=== PATIENT | female | born 1940 | race Caucasian/White ===

== ENCOUNTER 2021-09-06 09:12 | Emergency (ER) | payer MEDICARE, BC, SELFPAY ==
[2021-09-06 09:12] VITALS: BP 149/62; PULSE 63; RESP 20; TEMP 36.5; O2SAT 96
--- NOTE | 2021-09-06 09:20 | ED.URI ---
HPI - URI/Sore Throat General Chief Complaint: Upper Respiratory Infection Stated Complaint: Sinus Pain/Cough Time Seen by Provider: 09/06/21 09:20 Source: patient, family, RN notes reviewed and old records reviewed Mode of arrival: ambulatory Limitations: no limitations History of Present Illness HPI Narrative: 81-year-old female who presents to [facility] with one week duration of sinus congestion with drainage, cough with some shortness of breath with activity. Patient verbalizes history of previous sinus infections she denies any fever but reports some chills, denies any ear pain or sore throat. Patient has not had Covid vaccinations. MD elicited complaint: cough, rhinorrhea and nasal congestion Pertinent past history: sinusitis Onset (ago): week(s) (1) Description of mucous: clear Treatments prior to arrival: none Related Data Home Medications Medication Instructions Recorded Confirmed atorvastatin 20 mg PO DAILY 09/06/21 09/06/21 famotidine 20 mg PO BID 09/06/21 09/06/21 metoprolol tartrate 200 mg PO DAILY 09/06/21 09/06/21 pioglitazone 30 mg PO DAILY 09/06/21 09/06/21 triamterene-hydrochlorothiazid 1 tablet PO QAM 09/06/21 09/06/21 Allergies Allergy/AdvReac Type Severity Reaction Status Date / Time No Known Allergies Allergy Verified 09/06/21 09:22 Review of Systems Review of Systems: CONSTITUTIONAL: Denies fever,positive for chills, no sweats. EYES: Denies visual changes, redness, or discharge. ENT: Positive rhinorrhea, congestion, no sore throat, or otalgia. CARDIOVASCULAR: Denies chest pain, palpitations, or edema. RESPIRATORY: Positive cough or dyspnea with exertion. GASTROINTESTINAL: Denies abdominal pain, nausea, vomiting, or diarrhea. GENITOURINARY: Denies dysuria or hematuria. SKIN: Denies rash or itching. MUSCULOSKELETAL: Denies back pain, joint pain, or myalgia. NEUROLOGIC: Denies headache, numbness, or weakness. PSYCHIATRIC: Denies anxiety or depression. All systems reviewed & are unremarkable except as noted in HPI and below PMFSH Past Medical History Medical History (Updated 09/06/21 @ 09:49 by Lisa Schmid NP) Breast cancer Diabetes Elevated cholesterol GERD (gastroesophageal reflux disease) Hypertension Lymphoma Sinusitis Surgical History Surgical History (Updated 09/06/21 @ 09:40 by Lisa Schmid NP) H/O: hysterectomy History of right mastectomy With chemo Hx of cholecystectomy Family History Family History (Updated 09/06/21 @ 15:47 by Lisa Schmid NP) Other Cerebrovascular accident Hypertension Lung cancer Social History Social History (Updated 09/06/21 @ 09:41 by Lisa Schmid NP) Smoking status: Never smoker Alcohol intake: never Substance use: never Living arrangements: with family Gender identity (if verbalized by the patient): Female Comments At time of signature, agree with nursing past medical, surgical, social and family history. There is no relevant family history pertinent to the presenting complaint Exam Narrative: GENERAL: Well-appearing, well-nourished, and in no acute distress. HEAD: Normocephalic, atraumatic. EYES: PERRLA and EOMI. ENT: Nares red swollen clear rhinorrhea no epistaxis. Mucous membranes moist. TMs normal with dull light reflex, throat red no exudate or lesions no tonsillar enlargement postnasal drainage noted NECK: Supple. No lymphadenopathy CHEST: Clear to auscultation. No respiratory distress. SaO2 96% on room air, cough HEART: Regular rate and rhythm. No murmur heard. Normal peripheral pulses. ABDOMEN: Soft, nontender, nondistended, normal active bowel sounds. EXTREMITIES: Normal range of motion. No edema. SKIN: Warm, dry, no rash. NEURO: No focal deficits. Alert and oriented x3. Course Vital Signs Vital signs: Vital Signs Temperature 36.5 C 09/06/21 09:12 Pulse Rate 63 09/06/21 09:12 Respiratory Rate 20 09/06/21 09:12 Blood Pressure 149/62 H 09/06/21 09:12 Pulse Oxime
== END 2021-09-06 09:58 | disposition home or self-care (01) ==
PROVIDERS: Emergency Provider Registered Nurse; PCP Internal Medicine
DX: J32.9 Chronic sinusitis, unspecified (principal); E11.9 Type 2 diabetes mellitus without complications; E78.00 Pure hypercholesterolemia, unspecified; K21.9 Gastro-esophageal reflux disease without esophagitis; I10 Essential (primary) hypertension; Z85.3 Personal history of malignant neoplasm of breast; Z90.11 Acquired absence of right breast and nipple; Z85.72 Personal history of non-Hodgkin lymphomas; Z92.21 Personal history of antineoplastic chemotherapy; Z20.822 Contact with and (suspected) exposure to COVID-19
CPT/HCPCS: 87426; 87804; 99213; C9803; G0463

== ENCOUNTER 2022-06-19 12:01 | Outpatient (CLI) | payer MEDICARE, BC, SELFPAY ==
--- NOTE | ~2022-06-19 | NM_ITS ---
EXAMINATION: NM pulmonary perfusion DATE: 06/19/2022 13:05 INDICATION: Dyspnea TECHNIQUE: 5.5 mCi Tc-99m MAA by intravenous route. Scintigraphic images of the chest were obtained. COMPARISON: Chest radiograph dated 06/19/2022 FINDINGS: There is relatively homogeneous perfusion throughout the lungs. No discrete perfusion defects identi fied. IMPRESSION: 1. Normal study. Low probability for pulmonary embolism. Reviewed, dictated and finalized at location A.
--- NOTE | ~2022-06-19 | XR_ITS ---
XR chest 2V 06/19/2022 13:08 Indication: Dyspnea. Procedure: 2 views chest Comparison: No prior studies for comparison. Findings: Cardiomegaly. There is atherosclerosis of the aorta. No focal air space disease, pulmonary edema, pleural effusion or suspected pneumothorax. Impression: 1: No acute cardiopulmonary disease. Reviewed, dictated and finalized at location A. Impression: 1: No acute cardiopulmonary disease.
[2022-06-23 13:33] LABS: ANA Cascade Screen Negative (Negative)
== END 2022-06-19 12:02 | disposition home or self-care (01) ==
PROVIDERS: PCP Physician Assistant; Referring Provider Internal Medicine Critical Care Medicine; Visit Provider Nurse Practitioner Family
DX: R06.09 Other forms of dyspnea (principal); J98.4 Other disorders of lung; R94.2 Abnormal results of pulmonary function studies; R06.02 Shortness of breath; I51.7 Cardiomegaly; I70.0 Atherosclerosis of aorta
CPT/HCPCS: 36415; 71046; 78580; 86038; A9540

== ENCOUNTER 2022-07-04 08:17 | Outpatient (CLI) | payer MEDICARE, BC, SELFPAY ==
--- NOTE | ~2022-07-04 | CT_ITS ---
EXAMINATION: CT chest high resolution wo co DATE: 07/04/2022 08:35 INDICATION: Shortness of breath TECHNIQUE: Computed tomography (CT) of the chest was performed without intravenous contrast. The dose -length product (DLP) was 169.60 mGy-cm. Automated exposure control and iterative reconstruction tech nique were employed. COMPARISON: None FINDINGS: There are subpleural reticular and groundglass opacities throughout the lungs. No pleural e ffusion or pneumothorax. No focal airspace opacities are identified. Scattered small nodules of the l ungs measure 2 to 3 mm. No pathologically enlarged thoracic lymph nodes are identified. The heart siz e is normal. Changes of right mastectomy are noted. The gallbladder is surgically absent. There is mo derate thoracic spondylosis. IMPRESSION: 1. Chronic interstitial lung disease in a pattern of nonspecific interstitial pneumonia (NSIP). Reviewed, dictated and finalized at location B. IMPRESSION: 1. Chronic interstitial lung disease in a pattern of nonspecific interstitial p neumonia (NSIP).
== END 2022-07-04 08:18 | disposition home or self-care (01) ==
PROVIDERS: PCP Physician Assistant; Visit Provider Nurse Practitioner Family
DX: R06.09 Other forms of dyspnea (principal); J84.9 Interstitial pulmonary disease, unspecified
CPT/HCPCS: 71250

== ENCOUNTER 2022-07-21 10:33 | Outpatient (CLI) | payer MEDICARE, BC, SELFPAY ==
[2022-07-21 11:13] LABS: Rheumatoid Factor < 8.6 IU/ML (<12)
[2022-07-25 11:53] LABS: Anti Cyclic Citrullinated Pept <16 Units (<20)
[2022-07-25 19:12] LABS: ANCA Screen Negative (Negative)
== END 2022-07-21 10:34 | disposition home or self-care (01) ==
PROVIDERS: PCP Physician Assistant; Visit Provider Internal Medicine Pulmonary Disease
DX: J84.9 Interstitial pulmonary disease, unspecified (principal)
CPT/HCPCS: 36415; 86036; 86200; 86430

== ENCOUNTER 2022-07-30 08:00 | Outpatient (CLI) | payer MEDICARE, BC, SELFPAY ==
[2022-07-30 08:10] VITALS: PULSE 58; O2SAT 96
[2022-07-30 08:15] VITALS: PULSE 60; O2SAT 85
[2022-07-30 08:20] VITALS: PULSE 62; O2SAT 88
[2022-07-30 08:25] VITALS: PULSE 69; O2SAT 91
[2022-07-30 08:39] VITALS: PULSE 66; O2SAT 95
--- NOTE | 2022-07-30 08:41 | HOMEO2EVAL ---
Evaluation was performed at [facility] Home Oxygen Evaluation RC: Home Oxygen (O2) Evaluation Start: 07/30/22 08:37 Freq: Status: Active Protocol: RPE Activity Type Activity Date Activity User E-sign Co-sign Detail Recorded Client Recorded Date Recorded By Document 07/30/22 08:10 [email or web address] [email or web address] 07/30/22 08:41 DJO Document 07/30/22 08:15 [email or web address] [email or web address] 07/30/22 08:41 DJO Document 07/30/22 08:20 [email or web address] [email or web address] 07/30/22 08:41 DJO Document 07/30/22 08:25 [email or web address] [email or web address] 07/30/22 08:41 DJO Document 07/30/22 08:39 [email or web address] [email or web address] 07/30/22 08:41 DJO 07/30/22 07/30/22 07/30/22 08:10 08:15 08:20 Home O2 Evaluation [Oxygen] -Test Phase Resting Exercise Exercise -Oxygen Delivery Room Air Room Air Nasal Cannula -Oxygen Flow Rate (L/min) 1 [Pulse Oximetry] -Pulse Oximetry (90-100 %) 96 85 L 88 L [Pulse Rate] -Pulse Rate (60-100 beats/min) 58 L 60 62 [Evaluation] -Activity Tolerance [Exercise] -Ambulation Distance (feet) -Ambulation Distance (meters) [Charges] -Treatment Charges O2 Evaluation - Outpatient 07/30/22 07/30/22 08:25 08:39 Home O2 Evaluation [Oxygen] -Test Phase Exercise Resting -Oxygen Delivery Nasal Cannula Room Air -Oxygen Flow Rate (L/min) 2 [Pulse Oximetry] -Pulse Oximetry (90-100 %) 91 95 [Pulse Rate] -Pulse Rate (60-100 beats/min) 69 66 [Evaluation] -Activity Tolerance Fair [Exercise] -Ambulation Distance (feet) 600 -Ambulation Distance (meters) 182.87 [Charges] -Treatment Charges
--- NOTE | 2022-07-30 08:45 | HOMEO2EVAL ---
Evaluation was performed at [facility] Home Oxygen Evaluation RC: Home Oxygen (O2) Evaluation Start: 07/30/22 08:37 Freq: Status: Active Protocol: RPE Activity Type Activity Date Activity User E-sign Co-sign Detail Recorded Client Recorded Date Recorded By Document 07/30/22 08:10 [email or web address] [email or web address] 07/30/22 08:41 DJO Document 07/30/22 08:15 [email or web address] [email or web address] 07/30/22 08:41 DJO Document 07/30/22 08:20 [email or web address] [email or web address] 07/30/22 08:41 DJO Document 07/30/22 08:25 [email or web address] [email or web address] 07/30/22 08:41 DJO Document 07/30/22 08:39 [email or web address] [email or web address] 07/30/22 08:41 DJO 07/30/22 07/30/22 07/30/22 08:10 08:15 08:20 Home O2 Evaluation [Oxygen] -Test Phase Resting Exercise Exercise -Oxygen Delivery Room Air Room Air Nasal Cannula -Oxygen Flow Rate (L/min) 1 [Pulse Oximetry] -Pulse Oximetry (90-100 %) 96 85 L 88 L [Pulse Rate] -Pulse Rate (60-100 beats/min) 58 L 60 62 [Evaluation] -Activity Tolerance Fair [Exercise] -Ambulation Distance (feet) 600 -Ambulation Distance (meters) 182.87 [Charges] -Treatment Charges O2 Evaluation - Outpatient 07/30/22 07/30/22 08:25 08:39 Home O2 Evaluation [Oxygen] -Test Phase Exercise Resting -Oxygen Delivery Nasal Cannula Room Air -Oxygen Flow Rate (L/min) 2 [Pulse Oximetry] -Pulse Oximetry (90-100 %) 91 95 [Pulse Rate] -Pulse Rate (60-100 beats/min) 69 66 [Evaluation] -Activity Tolerance Fair [Exercise] -Ambulation Distance (feet) 600 -Ambulation Distance (meters) 182.87 [Charges] -Treatment Charges
== END 2022-07-30 08:01 | disposition home or self-care (01) ==
LOC: ANHPFT 08:02
PROVIDERS: PCP Physician Assistant; Visit Provider Internal Medicine Pulmonary Disease
DX: R06.09 Other forms of dyspnea (principal)
CPT/HCPCS: 94618

== ENCOUNTER 2023-01-02 13:00 | Emergency (ER) | payer MEDICARE, BC, SELFPAY ==
[2023-01-02] VITALS (31 sets, daily range): BP systolic 126–147; BP diastolic 53–76; PULSE 61–71; RESP 11–25; TEMP 36.4; O2SAT 92–100
--- NOTE | ~2023-01-02 | XR_ITS ---
EXAMINATION: XR chest 2V 01/02/2023 13:24 INDICATION: Chest pain. History of right mastectomy. Diabetes. Hypertension. PROCEDURE: 2 view chest COMPARISON: 06/19/2022 FINDINGS: The lungs are clear. The cardiomediastinal silhouette is within normal limits. There are no pleural effusions. There is no pneumothorax suspected. The lungs are hyperinflated which is cons istent with, but not diagnostic of chronic obstructive pulmonary disease. There is atherosclerosis. IMPRESSION: 1: NO ACUTE CARDIOPULMONARY DISEASE. Reviewed, dictated and finalized at location A.
--- NOTE | 2023-01-02 13:07 | ECG_ITS ---
Measurements Intervals [place] Rate: 59 P: 58 AL: 143 QRS: 34 QRSD: 91 T: 55 QT: 407 QTc: 404 Interpretive Statements SINUS BRADYCARDIA OTHERWISE NORMAL ECG NO PREVIOUS ECG AVAILABLE FOR COMPARISON Electronically Signed On 01-02-2023 15:40:25 CDT by Beka Merida M.D.
[2023-01-02 13:36] LABS: Basophils Absolute Auto 0.1 K/mm3 (0.0-0.1); Basophils Percent Auto 0.7 % (0.2-1.2); Eosinophils Absolute Auto 0.2 K/mm3 (0-0.3); Eosinophils Percent Auto 3.1 % (0-4.4); Hematocrit 39.7 % (37.0-47.0); Hemoglobin 12.6 g/dL (12.0-15.0); Immature Granulocyte Absolute 0.04 K/mm3 (0.00-0.031); Immature Granulocyte Percent A 0.6 % (0-0.5); Lymphocytes Absolute Auto 2.19 K/mm3 (0.9-3.2); Lymphocytes Percent Auto 30.7 % (18.3-44.2); Mean Corpuscular HGB Conc 31.7 g/dl (32-36); Mean Corpuscular Hemoglobin 30.8 pg (26-34); Mean Corpuscular Volume 97.1 fl (80-100); Mean Platelet Volume 10.3 fl (7.4-10.4); Monocytes Absolute Auto 0.5 K/mm3 (0.1-0.6); Monocytes Percent Auto 7.6 % (2.6-8.5); Neutrophils Absolute Auto 4.1 K/mm3 (1.3-6.7); Neutrophils Percent Auto 57.3 % (45.5-73.1); Platelet Count Result 207 k/mm3 (150-375); Red Blood Count 4.09 M/mm3 (4.2-5.4); Red Cell Distribution Width 14.9 % (11.5-14.5); White Blood Count 7.1 K/mm3 (4.5-10.0)
[2023-01-02 13:48] LABS: Alanine Aminotransferase 20 U/L (6-35); Albumin Level 4.2 g/dL (3.5-5.1); Alkaline Phosphatase 111 U/L (38-126); Anion Gap 7 mmol/L (8-16); Aspartate Amino Transferase 25 U/L (14-36); Bilirubin,Total 0.7 mg/dL (0.2-1.3); Blood Urea Nitrogen 27 mg/dL (7-17); Calcium 9.9 mg/dL (8.4-10.2); Carbon Dioxide 33 mmol/L (22-30); Chloride 101 mmol/L (98-107); Estimated CRCL calculation 29 ml/min; Estimated Glomerular Filt Rate 39; Glucose 164 mg/dL (65-110); INR 1.1; Lipase 124 U/L (23-300); Partial Thromboplastin Time 28.6 SECONDS (22.3-36.8); Potassium 3.8 mmol/L (3.4-5.0); Prothrombin Time 13.6 Seconds (11.1-14.7); Sodium 141 mmol/L (137-145)
[2023-01-02 13:59] LABS: Troponin I < 0.012 ng/mL (0.000-0.034)
--- NOTE | 2023-01-02 14:26 | ED.CHESTPAIN ---
HPI - Chest Pain General Chief Complaint: Chest Pain Stated Complaint: cp Time Seen by Provider: 01/02/23 13:22 History of Present Illness HPI narrative: Patient presenting with left-sided chest pain, started around 6 PM last night while she was at rest, by this morning has much improved, she does state she still had 1 twinge earlier. No shortness of breath, nausea or vomiting. Initially had some radiation to under her left arm. Related Data Home Medications Medication Instructions Recorded Confirmed famotidine 20 mg tablet 20 mg PO BID 09/06/21 06/16/22 aspirin 81 mg tablet,delayed 81 mg PO DAILY 06/16/22 06/16/22 release atorvastatin 10 mg tablet 10 mg PO DAILY 06/16/22 06/16/22 calcium citrate 315 mg-vitamin D3 1 tablet PO DAILY 06/16/22 06/16/22 5 mcg (200 unit) tablet (Calcium Citrate + D) metoprolol succinate 200 mg 200 mg PO DAILY 06/16/22 06/16/22 tablet,extended release 24 hr pioglitazone 15 mg tablet 15 mg PO DAILY 06/16/22 06/16/22 vit C,W-Yn-vyzrmo-lutein-zeaxan 60 1 cap PO DAILY 06/16/22 06/16/22 mg-13.5 mg-15 mg-2 mg-6 mg capsule Allergies Allergy/AdvReac Type Severity Reaction Status Date / Time No Known Allergies Allergy Verified 08/20/22 10:55 Review of Systems Review of Systems: CONST: No fever. HEENT: No sore throat C/V: chest pain RESP: No cough GI: No nausea or vomiting : No dysuria. M/S: No joint pain. SKIN: No rash. NEURO: [No headache or focal numbness or weakness] PSYCH: [No depression] [facility] Past Medical History Medical History Breast cancer Diabetes Elevated cholesterol GERD (gastroesophageal reflux disease) Hypertension Lymphoma Sinusitis Surgical History Surgical History H/O: hysterectomy History of right mastectomy With chemo Hx of cholecystectomy Family History Family History Father Lung cancer Mother Hypertension Other Cerebrovascular accident Social History Social History Smoking status: Never smoker Alcohol intake: never Substance use: never Living arrangements: with family Gender identity (if verbalized by the patient): Female Exam Narrative: EXAMINATION OF ORGAN SYSTEMS/BODY AREAS: Constitutional: Vital signs per nursing GENERAL:[No acute distress, non-toxic appearing.] HEAD: Normal with no signs of head trauma. EYES: EOMI, conjunctiva normal ENT: Hearing grossly intact LUNGS: Nonlabored breathing. HEART: [Regular rate and rhythm], no chest wall tenderness ABD: [Soft], [nontender to palpation] EXT: Normal range of motion SKIN: [No rashes or lesions.] NEURO: [Alert and oriented x 3. No gross focal sensory or strength deficits.] PSYCH: Normal affect Course Vital Signs Vital signs: Vital Signs Temperature 97.5 F L 01/02/23 13:04 Pulse Rate 61 01/02/23 13:04 Respiratory Rate 16 01/02/23 13:04 Blood Pressure 147/63 H 01/02/23 13:04 Pulse Oximetry 98 01/02/23 13:04 Oxygen Delivery Nasal Cannula 01/02/23 13:04 Oxygen Flow Rate 2 01/02/23 13:04 Temperature 97.5 F L 01/02/23 13:04 Pulse Rate 71 01/02/23 15:35 Respiratory Rate 18 01/02/23 15:35 Blood Pressure 134/54 L 01/02/23 15:16 Pulse Oximetry 100 01/02/23 15:35 Oxygen Delivery Nasal Cannula 01/02/23 13:39 Oxygen Flow Rate 2 01/02/23 13:39 MDM - Chest Pain MDM Narrative Medical decision making narrative: ED COURSE AND MEDICAL DECISION MAKINyoF presenting with chest pain. EKG done in triage negative for acute ischemic changes. Cardiac workup is initiated. EKG: Performed in triage and interpreted by me. Normal sinus rhythm. Rate 59. Normal axis. IA normal. QRS duration normal. QTc normal. No pathologic Q waves. No ST segment elevation or depression to suggest acute ischemia. No RV strain pattern. HEA
[2023-01-02 17:12] LABS: Troponin I 0.012 ng/mL (0.000-0.034)
== END 2023-01-02 18:13 | disposition home or self-care (01) ==
PROVIDERS: Emergency Provider Emergency Medicine; PCP Physician Assistant
DX: R07.9 Chest pain, unspecified (principal); E11.9 Type 2 diabetes mellitus without complications; E78.00 Pure hypercholesterolemia, unspecified; I10 Essential (primary) hypertension; Z85.3 Personal history of malignant neoplasm of breast; Z85.72 Personal history of non-Hodgkin lymphomas; Z90.710 Acquired absence of both cervix and uterus; Z90.11 Acquired absence of right breast and nipple; Z92.21 Personal history of antineoplastic chemotherapy; Z79.82 Long term (current) use of aspirin; R00.1 Bradycardia, unspecified
CPT/HCPCS: 36415; 71046; 80053; 83690; 84484; 85025; 85610; 85730; 93005; 99284

== ENCOUNTER 2023-01-03 12:34 | Emergency (ER) | payer MEDICARE, BC, SELFPAY ==
[2023-01-03] VITALS (10 sets, daily range): BP systolic 126–154; BP diastolic 56–100; PULSE 55–62; RESP 14–22; TEMP 36.4; O2SAT 86–100
--- NOTE | ~2023-01-03 | XR_ITS ---
EXAMINATION: XR chest 2V DATE: 01/03/2023 13:13 INDICATION: Persistent chest pain TECHNIQUE: PA and lateral views of the chest are obtained. COMPARISON: 01/02/2023 FINDINGS: The lungs are free of acute opacities. No pleural effusion or pneumothorax. The cardiomedia stinal silhouette is normal. There is moderate thoracic spondylosis. Surgical clips in the right uppe r quadrant are likely from prior cholecystectomy. There are changes of right mastectomy. IMPRESSION: 1. No acute cardiopulmonary abnormality. Reviewed, dictated and finalized at location A.
--- NOTE | 2023-01-03 12:39 | ECG_ITS ---
Measurements Intervals [place] Rate: 60 P: 53 MN: 144 QRS: 40 QRSD: 80 T: 75 QT: 416 QTc: 417 Interpretive Statements BASELINE ARTIFACT SINUS RHYTHM WITHIN NORMAL LIMITS COMPARED TO ECG 01/02/2023 13:11:27 NO OBVIOUS CHANGE Electronically Signed On 01-04-2023 7:40:50 CDT by Beka Merida M.D.
[2023-01-03 13:03] LABS: Basophils Percent Auto 0.7 % (0.2-1.2); Eosinophils Absolute Auto 0.2 K/mm3 (0-0.3); Eosinophils Percent Auto 3.5 % (0-4.4); Hemoglobin 12.4 g/dL (12.0-15.0); Immature Granulocyte Absolute 0.03 K/mm3 (0.00-0.031); Immature Granulocyte Percent A 0.5 % (0-0.5); Lymphocytes Absolute Auto 1.59 K/mm3 (0.9-3.2); Lymphocytes Percent Auto 27.7 % (18.3-44.2); Mean Corpuscular HGB Conc 31.8 g/dl (32-36); Mean Corpuscular Hemoglobin 30.5 pg (26-34); Mean Corpuscular Volume 95.8 fl (80-100); Mean Platelet Volume 10.1 fl (7.4-10.4); Monocytes Absolute Auto 0.4 K/mm3 (0.1-0.6); Monocytes Percent Auto 7.1 % (2.6-8.5); Neutrophils Absolute Auto 3.5 K/mm3 (1.3-6.7); Neutrophils Percent Auto 60.5 % (45.5-73.1); Platelet Count Result 198 k/mm3 (150-375); Red Blood Count 4.07 M/mm3 (4.2-5.4); Red Cell Distribution Width 14.8 % (11.5-14.5); White Blood Count 5.7 K/mm3 (4.5-10.0)
[2023-01-03 13:16] LABS: INR 1.1; Partial Thromboplastin Time 28.7 SECONDS (22.3-36.8); Prothrombin Time 13.4 Seconds (11.1-14.7)
[2023-01-03 13:18] LABS: Alanine Aminotransferase 19 U/L (6-35); Albumin Level 3.9 g/dL (3.5-5.1); Alkaline Phosphatase 124 U/L (38-126); Anion Gap 5 mmol/L (8-16); Aspartate Amino Transferase 20 U/L (14-36); Bilirubin,Total 0.7 mg/dL (0.2-1.3); Blood Urea Nitrogen 30 mg/dL (7-17); Calcium 9.2 mg/dL (8.4-10.2); Carbon Dioxide 31 mmol/L (22-30); Chloride 103 mmol/L (98-107); Estimated CRCL calculation 31 ml/min; Estimated Glomerular Filt Rate 43; Glucose 146 mg/dL (65-110); Lipase 151 U/L (23-300); Potassium 3.9 mmol/L (3.4-5.0); Sodium 139 mmol/L (137-145)
[2023-01-03 13:29] LABS: Troponin I < 0.012 ng/mL (0.000-0.034)
--- NOTE | 2023-01-03 15:08 | ED.CHESTPAIN ---
HPI - Chest Pain General Chief Complaint: Chest Pain Stated Complaint: cp Time Seen by Provider: 01/03/23 14:37 History of Present Illness HPI narrative: Patient is an 82-year-old female who presents ER with left-sided chest pain. Ongoing for last 2 days. Reports last night while she is in bed it occurred for 2 seconds every 10 minutes. No radiation. Tightness and grabbing. No Raynaud's or sore throat or cough. No history of heart disease. Patient had a normal coronary calcium score of 0 last 6 months, she is also had a normal echocardiogram. She is followed by Dr. Pond. She was seen in the ER yesterday and had 2 negative troponins but symptoms continued throughout the evening so she came in to be seen. She tried no medications to alleviate her discomfort. Related Data Home Medications Medication Instructions Recorded Confirmed famotidine 20 mg tablet 20 mg PO BID 09/06/21 06/16/22 aspirin 81 mg tablet,delayed 81 mg PO DAILY 06/16/22 06/16/22 release atorvastatin 10 mg tablet 10 mg PO DAILY 06/16/22 06/16/22 calcium citrate 315 mg-vitamin D3 1 tablet PO DAILY 06/16/22 06/16/22 5 mcg (200 unit) tablet (Calcium Citrate + D) metoprolol succinate 200 mg 200 mg PO DAILY 06/16/22 06/16/22 tablet,extended release 24 hr pioglitazone 15 mg tablet 15 mg PO DAILY 06/16/22 06/16/22 vit C,F-Pl-wsumty-lutein-zeaxan 60 1 cap PO DAILY 06/16/22 06/16/22 mg-13.5 mg-15 mg-2 mg-6 mg capsule Allergies Allergy/AdvReac Type Severity Reaction Status Date / Time No Known Allergies Allergy Verified 08/20/22 10:55 Review of Systems Review of Systems: All systems reviewed & are unremarkable except as noted in HPI and below Constitutional: Constitutional: Denies chills and Denies fever(s) Cardiovascular: Cardiovascular: Reports chest pain, Denies rapid heart rate and Denies radiating jaw, neck or arm pain Respiratory: Respiratory: Denies cough and Denies dyspnea Gastrointestinal: Gastrointestinal: Denies abdominal pain, Denies nausea and Denies vomiting PMF Past Medical History Medical History Breast cancer Diabetes Elevated cholesterol GERD (gastroesophageal reflux disease) Hypertension Lymphoma Sinusitis Surgical History Surgical History H/O: hysterectomy History of right mastectomy With chemo Hx of cholecystectomy Family History Family History Father Lung cancer Mother Hypertension Other Cerebrovascular accident Social History Social History Smoking status: Never smoker Alcohol intake: never Substance use: never Living arrangements: with family Gender identity (if verbalized by the patient): Female Exam Narrative: GENERAL: Well-appearing, well-nourished, and in no acute distress. HEAD: Normocephalic, atraumatic. ENT: Mucous membranes moist. NECK: Supple. CHEST: Clear to auscultation. No respiratory distress. HEART: Regular rate and rhythm. Normal peripheral pulses. ABDOMEN: Soft, nontender, nondistended. EXTREMITIES: Normal range of motion. No edema. SKIN: Warm, dry, no rash. NEURO: Alert and oriented x3. PSYCH: Normal mood and affect. Course Course Emergency Course: Troponin negative x2 here. Discussed case with Dr. Merida. Discussed normal echo as well as coronary calcium score is 0 and previous visit. Symptoms felt to be quite atypical for cardiac chest pain as recommended patient contact her tavern operator tomorrow to schedule follow-up. I recommend anti-inflammatories and Tylenol as needed for pain at home. Patient does verbalize understanding treatment plan. Discharge. Vital Signs Vital signs: Vital Signs Temperature 97.5 F L 01/03/23 12:39 Pulse Rate 60 01/03/23 12:39 Respiratory Rate 22 H 01/03/23 12:39 Blood Pressure 138/56 L 01/03/23 12:39
[2023-01-03] MEDS: ASPIRIN 81 MG CHEWABLE TABLET 324 MG PO (15:24)
--- NOTE | 2023-01-03 15:26 | PC.NURSE ---
Pt wears 2 liters O2 at baseline.
--- NOTE | 2023-01-03 15:28 | PC.NURSE ---
Confirmed with Dr Brown. OK to continue to give protocol aspirin
[2023-01-03 16:08] LABS: Troponin I < 0.012 ng/mL (0.000-0.034)
== END 2023-01-03 16:36 | disposition home or self-care (01) ==
PROVIDERS: Emergency Provider Emergency Medicine; PCP Physician Assistant
DX: R07.89 Other chest pain (principal); I10 Essential (primary) hypertension; E11.9 Type 2 diabetes mellitus without complications; E78.00 Pure hypercholesterolemia, unspecified; K21.9 Gastro-esophageal reflux disease without esophagitis; Z85.3 Personal history of malignant neoplasm of breast; Z85.72 Personal history of non-Hodgkin lymphomas; Z92.21 Personal history of antineoplastic chemotherapy; Z90.710 Acquired absence of both cervix and uterus; Z90.11 Acquired absence of right breast and nipple; Z90.49 Acquired absence of other specified parts of digestive tract; Z79.84 Long term (current) use of oral hypoglycemic drugs
CPT/HCPCS: 36415; 71046; 80053; 83690; 84484; 85025; 85610; 85730; 93005; 99284; A9270

== ENCOUNTER 2023-01-26 09:01 | Outpatient (CLI) | payer MEDICARE, BC, SELFPAY ==
--- NOTE | 2023-02-16 10:20 | WPDSLEEPSTUD ---
Sleep Study Date of Study: 01/26/23 Ordering Provider: Dougie Townsend MD Interpreting Physician: Kristina Wild MD Sleep Study Type: Polysomnogram Height: 1.55 m Weight: 87.543 kg Body Mass Index: 36.4 Neck Circumference (inches): 14 [place]: 12 Reason for Sleep Study O2 use, restless leg syndrome Sleep History Mari Franco is an 82-year-old female with Interstitial lung disease on chest CT and hypoxemia on oxygen 2 L/minute. She had a sleep study in the past that showed obstructive sleep apnea with use of CPAP for a short while. She hassan a difficult time tolerating PAP. She has restless legs symptoms which impacts her sleep quality. She also has elevated pulmonary systolic pressure at 44 mm of mercury on echocardiogram.? She does not awaken from sleep feeling short of breath. She does not awaken at night with heartburn belching or coughing. She occasionally snores but does not report that it is loud enough that others complain about it. She frequently has difficulty sleeping with a cold. She does not wake up gasping for breath at night or have breathing problems at night observed by others. She does not sweat excessively at night or notice her heart pounding or beating irregularly night. She occasionally falls asleep during the day, occasionally falls asleep involuntarily however never falls asleep while driving. She does not have loss of muscle tone with strong emotion. She does not have daytime difficulties due to excessive sleepiness. She does not feel paralyzed on waking or falling asleep. She occasionally has vivid dreamlike scenes on waking or falling asleep. She does not feel afraid to go to sleep. She occasionally has nightmares. She frequently remembers her dreams. She frequently has racing thoughts. She rarely feels sad or depressed. She frequently has anxiety. She does not have muscular tension. She occasionally notices parts of her body jerking. She occasionally kicks at night. She rarely has crawling and aching feelings in her legs, rarely has leg pain during the night. She does not have morning jaw pain and does not grind her teeth during sleep. She frequently is bothered by pain during the day. She frequently is awakened by pain at night. She constantly wakes up feeling stiff in the morning, frequently wakes up with sore achy muscles, frequently wakes up with pain in the neck and spine. She has headaches and fatigue. She suffers with insomnia. Her normal bedtime is between 11:00 p.m. and 12 midnight, taking 1-2 hours fall asleep, typically waking between 3 and 5 times at night to go to the bathroom. She wakes in the morning between 10:00 a.m. and 11:00 a.m.. During the 11 hours in bed she estimates having 6 hours of sleep. Her weekend schedule is similar, bedtime 11:00 p.m. to 12 midnight, waking between 8:00 a.m. and 9:00 a.m.. She takes naps in the afternoon or evening. Habits: Never smoked tobacco. Caffeine: She drinks soda or tea occasionally. No alcohol or recreational substances. [facility] Past Medical History Medical History Breast cancer Diabetes Elevated cholesterol GERD (gastroesophageal reflux disease) Hypertension Lymphoma Sinusitis Surgical History Surgical History H/O: hysterectomy History of right mastectomy With chemo Hx of cholecystectomy Family History Family History Father Lung cancer Mother Hypertension Other Cerebrovascular accident Social History Social History Smoking status: Never smoker Alcohol intake: never Substance use: never Living arrangements: with family Gender identity (if verbalized by the patient): Female Medications Home Medications Medication Instructions Recorded Confirmed Type famotidine 20 mg tab
[2023-02-16 11:11] VITALS: BMI 36.4
== END 2023-01-27 06:42 | disposition home or self-care (01) ==
LOC: ANHCSM 09:02
PROVIDERS: PCP Physician Assistant; Visit Provider Internal Medicine Pulmonary Disease
DX: G47.33 Obstructive sleep apnea (adult) (pediatric) (principal); G47.61 Periodic limb movement disorder
CPT/HCPCS: 95810

== ENCOUNTER 2023-02-12 09:43 | Outpatient (CLI) | payer MEDICARE, BC, SELFPAY ==
--- NOTE | 2023-02-12 13:42 | WPDPFTINT ---
PFT Procedure Performed PFT Procedure Performed Spirometry with Pre/Post Bronchodilator Plethysmography (Lung Vol) Diffusing Cap (DLCO) Flow Vol Loop PFT Interpretation Lung volumes were measured with the body plethysmography method. The diminished lung volumes are indicative of restrictive respiratory disease. Spirometry showed normal expiratory flow rates and a normal FEV1 to FVC ratio of 81%. Following administration of a bronchodilator there was no significant increase in the expiratory flow rates. Lung diffusion capacity is severely reduced at 35% predicted. The flow-volume loop is unremarkable. Impression: Mild restrictive respiratory disease. Severely reduced lung diffusion capacity.
--- NOTE | 2023-02-12 13:44 | WPDSIXMINUTE ---
Six Minute Walk Procedure Procedure Performed Pulmonary Stress Test (6 min walk) Six Minute Walk Six Minute Walk: This 6 minutes walk test was carried out with the patient breathing supplemental oxygen at 2 liters/minute. The baseline pre-walk oxyhemoglobin saturation was 99%. The patient walked 152 m with no stops during testing. During the walk the oxyhemoglobin saturation remained 91% or higher. Impression: No evidence of oxyhemoglobin desaturation on this testing.
== END 2023-02-12 09:44 | disposition home or self-care (01) ==
LOC: ANHPFT 09:44
PROVIDERS: PCP Physician Assistant; Visit Provider Internal Medicine Pulmonary Disease
DX: R06.09 Other forms of dyspnea (principal); R94.2 Abnormal results of pulmonary function studies
CPT/HCPCS: 94060; 94618; 94726; 94729

== ENCOUNTER 2023-04-20 09:00 | Outpatient (CLI) | payer MEDICARE, BC, SELFPAY ==
--- NOTE | 2023-05-12 20:36 | WPDSLEEPSTUD ---
Sleep Study Date of Study: 04/20/23 Ordering Provider: Baltazar Patterson APRN Interpreting Physician: Kristina Wild MD Sleep Study Type: CPAP Titration Height: 1.55 m Weight: 89.358 kg Body Mass Index: 37.2 Neck Circumference (inches): 14 [place]: 8 Reason for Sleep Study * Basic PSG on 01/26/2023 shows mild obstructive sleep apnea.? The overall AHI is 7.2.??Lowest saturation was 84% and she had loud snoring with periodic limb movements. Total sleep was limited, 58 minutes.? She returns for a PAP titration for mild ADRIAN and a co-morbidity of hypertension. Sleep History Mari Franco is an 82-year-old female with Interstitial lung disease on chest CT and hypoxemia on oxygen 2 L/minute.? She had a sleep study in the past that showed obstructive sleep apnea with use of CPAP for a short while. She hassan a difficult time tolerating PAP. ? She has restless legs symptoms which impacts her sleep quality.? She also has elevated pulmonary systolic pressure at 44 mm of mercury on echocardiogram.? ? She does not awaken from sleep feeling short of breath.? She does not awaken at night with heartburn belching or coughing.? She occasionally snores but does not report that it is loud enough that others complain about it.? She frequently has difficulty sleeping with a cold.? She does not wake up gasping for breath at night or have breathing problems at night observed by others.? She does not sweat excessively at night or notice her heart pounding or beating irregularly night.? She occasionally falls asleep during the day, occasionally falls asleep involuntarily however never falls asleep while driving.? She does not have loss of muscle tone with strong emotion.? She does not have daytime difficulties due to excessive sleepiness.? She does not feel paralyzed on waking or falling asleep.? She occasionally has vivid dreamlike scenes on waking or falling asleep.? She does not feel afraid to go to sleep.? She occasionally has nightmares.? She frequently remembers her dreams.? She frequently has racing thoughts.? She rarely feels sad or depressed.? She frequently has anxiety.? She does not have muscular tension.? She occasionally notices parts of her body jerking.? She occasionally kicks at night.? She rarely has crawling and aching feelings in her legs, rarely has leg pain during the night.? She does not have morning jaw pain and does not grind her teeth during sleep.? She frequently is bothered by pain during the day.? She frequently is awakened by pain at night.? She constantly wakes up feeling stiff in the morning, frequently wakes up with sore achy muscles, frequently wakes up with pain in the neck and spine.? She has headaches and fatigue.? She suffers with insomnia. Her normal bedtime is between 11:00 p.m. and 12 midnight, taking 1-2 hours fall asleep, typically waking between 3 and 5 times at night to go to the bathroom.? She wakes in the morning between 10:00 a.m. and 11:00 a.m..? During the 11 hours in bed she estimates having 6 hours of sleep.? Her weekend schedule is similar, bedtime 11:00 p.m. to 12 midnight, waking between 8:00 a.m. and 9:00 a.m..? She takes naps in the afternoon or evening. Habits:? Never smoked tobacco.? Caffeine:? She drinks soda or tea occasionally.? No alcohol or recreational substances. [facility] Past Medical History Medical History (Updated 05/12/23 @ 20:59 by Kristina Wild MD) Breast cancer Diabetes Elevated cholesterol GERD (gastroesophageal reflux disease) Hypertension Interstitial lung disease Lymphoma Obstructive sleep apnea PLMD (periodic limb movement disorder) Sinusitis Surgical History Surgical History H/O: hysterectomy History of right mastectomy With chemo Hx of cholecystectomy Family History Family History Father Lung cancer Mother Hypertension Other Cerebrovascular accident Social History Social
[2023-05-12 20:37] VITALS: BMI 37.2
== END 2023-04-21 06:32 | disposition home or self-care (01) ==
PROVIDERS: PCP Physician Assistant; Visit Provider Nurse Practitioner Family
DX: G47.33 Obstructive sleep apnea (adult) (pediatric) (principal)
CPT/HCPCS: 95811